=== PATIENT | male | born 1980 | race American Indian/Alaskan Native ===

== ENCOUNTER 2020-07-13 10:01 | Emergency (ER) | payer MEDICAID ==
[2020-07-13] MEDS ORDERED: Ondansetron 4 MG/2 ML SDV IVPUSH ONE (10:36)
[2020-07-13] MEDS ORDERED: LORazepam 2 MG/ML SDV IVPUSH ONE (10:36)
[2020-07-13] MEDS ORDERED: Prochlorperazine 10 MG/2 ML SDV IVPUSH ONE (10:36)
--- NOTE | 2020-07-13 10:43 | EDM.PDOC ---
ED HPI GENERAL MEDICAL PROBLEM - General Chief Complaint: General Stated Complaint: ESTEFANIA CAN'T SLEEP Time Seen by Provider: 07/13/20 10:25 Source of Information: Reports: Patient History Limitations: Reports: No Limitations - History of Present Illness INITIAL COMMENTS - FREE TEXT/NARRATIVE: 40-year-old male with a history of recurring cycles of intense vomiting, abdominal pain, presents with recurrence of symptoms. He usually goes to [facility] but came here because its "closer". I reviewed his last visit to [facility] 2 months ago, a thorough work-up was obtained including lab and imaging, he improved with medication of Compazine, Zofran. At that time he said he quit smoking marijuana because it "gave him headaches", but he now admits he restarted smoking. He has no fever chills, no diarrhea. Symptoms started fairly suddenly 12 hours ago. Duration: Hour(s): (12 hours) Associated Symptoms: Reports: Nausea/Vomiting, Other (Abdominal cramps and pain, chest pain) - Related Data Allergies Allergy/AdvReac Type Severity Reaction Status Date / Time ketorolac [From Toradol] Allergy Hives Verified 07/13/20 10:17 tramadol Allergy Hives Verified 07/13/20 10:17 Home Meds: Home Meds NK [No Known Home Meds] 07/13/20 [History] Past Medical History Musculoskeletal History: Reports: Other (See Below) Other Musculoskeletal History: toes on right foot amputated Endocrine/Metabolic History: Reports: Diabetes, Type II Social & Family History - Tobacco Use Tobacco Use Status *Q: Current Every Day Tobacco User Years of Tobacco use: 10 Packs/Tins Daily: 0.5 - Caffeine Use Caffeine Use: Reports: Coffee, Tea - Recreational Drug Use Recreational Drug Use: Yes Drug Use in Last 12 Months: Yes Recreational Drug Type: Reports: Marijuana/Hashish Recreational Drug Use Frequency: Socially ED ROS GENERAL - Review of Systems Review Of Systems: See Below Constitutional: Reports: Malaise. Denies: Fever, Chills HEENT: Denies: Vision Change Respiratory: Denies: Shortness of Breath Cardiovascular: Reports: Chest Pain GI/Abdominal: Reports: Abdominal Pain, Nausea, Vomiting. Denies: Constipation, Diarrhea Neurological: Denies: Headache Psychiatric: Reports: Anxiety ED EXAM, GENERAL - Physical Exam Exam: See Below Exam Limited By: No Limitations General Appearance: Alert, Anxious, Mild Distress (Actively wretching) Respiratory/Chest: No Respiratory Distress, Lungs Clear Cardiovascular: Regular Rate, Rhythm, Tachycardia (Just mild tachycardia) GI/Abdominal: Tender, Other (Diffusely tender to palpation, difficult to examine because it is hard for him to lay down) Neurological: Alert, Oriented Psychiatric: Anxious Skin Exam: Warm, Dry Course - Vital Signs Last Recorded V/S: Last Vital Signs Temp 97.5 F 07/13/20 10:18 Pulse 108 H 07/13/20 10:18 Resp 16 07/13/20 10:18 BP 140/87 07/13/20 10:18 Pulse Ox 97 07/13/20 10:18 - Orders/Labs/Meds Meds: Medications Discontinued Medications Generic Name Dose Route Start Last Admin Trade Name Nemesioq PRN Reason Stop Dose Admin Lorazepam 1 mg 07/13/20 10:36 07/13/20 10:50 Ativan IVPUSH 07/13/20 10:37 1 mg ONETIME ONE Administration Ondansetron HCl 4 mg 07/13/20 10:36 07/13/20 10:47 Zofran IVPUSH 07/13/20 10:37 4 mg ONETIME ONE Administration Prochlorperazine Edisylate 5 mg 07/13/20 10:36 07/13/20 10:45 Compazine IVPUSH 07/13/20 10:37 5 mg ONETIME ONE Administration - Re-Assessments/Exams Free Text/Narrative Re-Assessment/Exam: 07/13/20 10:43 Patient does have a ride home, an IV was started and he will be given 1 mg of IV Ativan, 5 mg of Compazine and 4 mg of IV Zofran. 07/13/20 11:08 20 minutes after the IV medications, patient was resting quietly with minimal symptoms. Abdomen was reexamined and is now soft nontender. We will let the patient rest for the next several minutes. 07/13/20 12:07 Patient slept soundly for over an hour without any nausea or vomiting. He was discharged home and encouraged to avoid marijuana in the future. Departure - Departure Time of Disposition: 12:25 Disposition: Home, Self-Care 01 Clinical Impression: Cyclical vomiting - Discharge Information Instructions: Cyclic Vomiting Syndrome, Adult Referrals: PCP,None [Primary Care Provider] - Forms: ED Department Discharge Care Plan Goals: Advance diet slowly concentrating on liquids initially, avoid any marijuana or alcohol over the next several days and recommended you avoid marijuana altogether in the future. Return if worsening or concerns. Sepsis Event Note (ED) - Evaluation Sepsis Screening Result: No Definite Risk - Focused Exam Vital Signs: Vital Signs Temp Pulse Resp BP Pulse Ox 07/13/20 10:18 97.5 F 108 H 16 140/87 97 07/13/20 10:16 97.5 F 108 H 16 140/87 97
== END 2020-07-13 12:15 | disposition home or self-care (01) ==
LOC: JP.ED 10:01
DX: R11.15 Cyclical vomiting syndrome unrelated to migraine (principal); E11.9 Type 2 diabetes mellitus without complications; F17.210 Nicotine dependence, cigarettes, uncomplicated; Z88.5 Allergy status to narcotic agent; Z88.6 Allergy status to analgesic agent
CPT/HCPCS: 96374; 96375; 99283-25; J0780; J2060; J2405